=== PATIENT | female | born 1990 | race Caucasian/White ===

== ENCOUNTER 2018-07-25 14:34 | Emergency (ER) | payer MEDICAID, OTHER ==
[2018-07-25] MEDS ORDERED: ONDANSETRON 4 MG/2 ML VIAL IVP ONE (15:07)
[2018-07-25] MEDS ORDERED: NS 1,000 ML IV ONE ×2 (15:07→17:07)
--- NOTE | 2018-07-25 15:07 | EDPHY ---
H & P Stated Complaint: "vertigo" for months , does not see anybody, Time Seen by Provider: 07/25/18 14:56 HPI/ROS: 27 yo F presents c/o vertigo symptoms and nausea for approximately one week, she states this has happened to her intermittently every since she went [place] [facility] in [place] and found she could not ride on any of the rides without having significant motion sickness. Review of systems as per hpi General no fever no chills no weakness HEENT no eye pain no eye discharge. No eye redness, no sore throat Respiratory no cough, no shortness of breath Cardiac no chest pain, no peripheral edema GI no abdominal pain, no diarrhea, no constipation, pos nausea, no vomiting no flank pain, no hematuria, no dysuria Musculoskeletal no myalgias, no joint pain Heme no easy bruising, no easy bleeding Endo no polyuria, no polydipsia Skin no rashes, no pruritus Neuro no syncope, pos dizziness, no headaches Psych is no suicidal ideation, no homicidal ideation Source: Patient Exam Limitations: No limitations - Personal History Current Tetanus Diphtheria and Acellular Pertussis (TDAP): Yes - Medical/Surgical History Hx Asthma: No Hx Chronic Respiratory Disease: No Hx Diabetes: No Hx Cardiac Disease: No Hx Renal Disease: No Hx Cirrhosis: No Hx Alcoholism: No Hx HIV/AIDS: No Hx Splenectomy or Spleen Trauma: No Other PMH: c section x 2. urethal surg cystectomy. abd plasty - Social History Smoking Status: Never smoked - Physical Exam Exam: 27-year-old female in no acute distress nontoxic appearance, afebrile Initially holding her head still, stating that movement causes nausea and room spinning HEENT atraumatic normocephalic, extraocular muscles intact, anicteric, no nystagmus Oropharynx negative for erythema negative exudate, tolerating her own secretions Neck supple no meningismus Lungs clear to auscultation bilaterally Heart regular rate and rhythm without murmur rub or gallop Abdomen nondistended normoactive bowel sounds soft nontender Back no CVA tenderness, no step-offs, no spinal tenderness Extremities no cyanosis clubbing or edema Neuro alert and oriented, no focal deficits Constitutional: Initial Vital Signs Temperature (C) 36.9 C 07/25/18 14:42 Heart Rate 103 H 07/25/18 14:42 Respiratory Rate 16 07/25/18 14:42 Blood Pressure 138/104 H 07/25/18 14:42 O2 Sat (%) 97 07/25/18 14:42 O2 Delivery Mode Room Air Allergies/Adverse Reactions: No Known Allergies Allergy (Unverified 07/25/18 14:48) Home Medications: Medication Instructions Recorded Meclizine HCl [Meclizine HCl 25 mg 25 mg PO TID PRN #30 tab 07/25/18 (RX,OTC)] Medical Decision Making ED Course/Re-evaluation: Patient seen and evaluated for room spinning/vertigo like symptoms, nausea of several days duration and intermittent for several months. IV established Labs drawn CBC, BMP within normal limits Patient given IV fluids normal saline, ondansetron 4 mg IV push for nausea as well as meclizine 25 mg p.o. For vertigo She had marked improvement but continued to complain of some dizziness and vertigo like symptoms at that point she was given 2.5 mg diazepam IV push With marked relief Impression Benign positional vertigo Plan Discharge home Advised patient to obtain a primary care given to possible clinic referrals Also given prescription for meclizine Differential Diagnosis: Differential diagnosis considered but not limited to: Acute labyrinthitis, benign positional vertigo, dizziness of unknown etiology - Data Points Laboratory Results: 07/25/18 15:46 POC Sodium 145 mEq/L mEq/L (135-145) POC Potassium 3.3 mEq/L mEq/L (3.3-5.0) POC Chloride 107.0 mEq/L mEq/L (97-110) POC Total CO2 25 mEq/L mEq/L (22-31) POC BUN 13 mg/dL mg/dL (7-23) POC Creatinine 0.9 mg/dL mg/dL (0.6-1.0) POC Glucose 92 mg/dL mg/dL (70-100) POC Calcium 9.5 mg/dL mg/dL (8.5-10.4) Medications Given: Discontinued Medications Acetaminophen (Tylenol) 1,000 mg PO EDNOW ONE Stop: 07/25/18 17:16 Last Admin: 07/25/18 17:18 Dose: 1,000 mg Diazepam (Valium) 2.5 mg IVP EDNOW ONE Stop: 07/25/18 17:11 Last Admin: 07/25/18 17:21 Dose: 2.5 mg Sodium Chloride (Ns) 1,000 mls @ 0 mls/hr IV ONCE ONE PRN Reason: Wide Open Stop: 07/25/18 15:08 Last Admin: 07/25/18 15:50 Dose: 1,000 mls Sodium Chloride (Ns) 1,000 mls @ 0 mls/hr IV ONCE ONE PRN Reason: Wide Open Stop: 07/25/18 17:08 Last Admin: 07/25/18 17:18 Dose: 1,000 mls Meclizine HCl (Meclizine Hcl) 25 mg PO EDNOW ONE Stop: 07/25/18 15:09 Last Admin: 07/25/18 16:09 Dose: 25 mg Miscellaneous Information (Patch Removal) 1 ea TD Q24H ONE Stop: 07/26/18 17:08 Last Admin: 07/25/18 17:23 Dose: Not Given Ondansetron HCl (Zofran) 4 mg IVP EDNOW ONE Stop: 07/25/18 15:08 Last Admin: 07/25/18 15:50 Dose: 4 mg Scopolamine HBr (Scopolamine Patch) 1 patch TD Q24H ONE Stop: 07/25/18 17:08 Last Admin: 07/25/18 17:22 Dose: Not Given Point of Care Test Results: CBC CBC Collection Date 07/25/18 CBC Collection Time 15:40 WBC 5.52 RBC 5.19 HGB 14.3 HCT 44.7 PLT 336 Neut # 3.2 Neut 58 LYMPH # 1.75 LYMPH 31.7 MCV 86.1 Chemistry 07/25/18 15:46 POC Sodium 145 mEq/L mEq/L (135-145) POC Potassium 3.3 mEq/L mEq/L (3.3-5.0) POC Chloride 107.0 mEq/L mEq/L (97-110) POC Total CO2 25 mEq/L mEq/L (22-31) POC BUN 13 mg/dL mg/dL (7-23) POC Creatinine 0.9 mg/dL mg/dL (0.6-1.0) POC Glucose 92 mg/dL mg/dL (70-100) POC Calcium 9.5 mg/dL mg/dL (8.5-10.4) Departure - Departure Disposition: Home, Routine, Self-Care Clinical Impression: Vertigo Condition: Good Instructions: Benign Paroxysmal Positional Vertigo (ED) Referrals: NONE *PRIMARY CARE P,. [Primary Care Provider] - As per Instructions [facility] [Clinic] - As per Instructions [facility] [Provider Group] - As per Instructions Prescriptions: Meclizine HCl [Meclizine HCl 25 mg (RX,OTC)] 25 mg PO TID PRN #30 tab PRN Reason: Dizziness
[2018-07-25] MEDS ORDERED: MECLIZINE HCL 25 MG TAB PO ONE (15:08)
[2018-07-25] MEDS ORDERED: SCOPOLAMINE HYDROBROMIDE 1 MG/3 DAYS PATCH TD ONE (17:07)
[2018-07-25] MEDS ORDERED: DIAZEPAM 5 MG/ML 1 ML SYR IVP ONE (17:10)
[2018-07-25] MEDS ORDERED: ACETAMINOPHEN 500 MG TAB PO ONE (17:15)
[2018-07-25 18:45] VITALS: BP 117/78
[2018-07-26] MEDS ORDERED: PATCH REMOVAL 1 EA PATCH TD ONE (17:07)
== END 2018-07-25 18:44 | disposition home or self-care (01) ==
LOC: CED 14:34
DX: R42 Dizziness and giddiness (principal)
CPT/HCPCS: 80048-ER; 96361-ER; 96374-ER; 96375-ER; 99284-ER; J2405; J3360